=== PATIENT | female | born 1955 | race Caucasian/White ===

== ENCOUNTER 2025-02-02 14:00 | Outpatient (RCR) | payer MEDICARE, OTHER, SELFPAY | END 2025-06-02 23:59 | disposition home or self-care (01) | PROVIDERS: Visit Provider Student in an Organized Health Care Education/Training Program | DX: N81.4 Uterovaginal prolapse, unspecified (principal); Z51.89 Encounter for other specified aftercare | CPT/HCPCS: 97112; 97140; 97161; 97530; 97535 ==